=== PATIENT | female | born 1965 | race Caucasian/White ===

== ENCOUNTER 2023-10-09 05:45 | Day surgery (SDC) | payer OTHER ==
[2023-09-29 16:06] LABS: BILIRUBIN,URINE NEGATIVE (Neg); CLARITY,URINE CLEAR (Clear); COLOR,URINE YELLOW (Yellow); GLUCOSE, URINE NEGATIVE (Neg); KETONES,URINE NEGATIVE (Neg); LEUKOCYTE ESTERASE ,URINE NEGATIVE (Neg); NITRITES, URINE NEGATIVE (Neg); OCCULT BLOOD,URINE NEGATIVE (Neg); PH,URINE 6.5 (4.8-8.0); PROTEIN,URINE NEGATIVE (Neg); UROBILINOGEN,URINE 0.2 E.U/dL (0.2-1.0)
[2023-09-29 16:07] LABS: BASOPHILS # (AUTO) 0.1 X10'3 (0-0.2); BASOPHILS % (AUTO) 1.2 % (0-1); EOSINOPHILS # (AUTO) 0.1 X10'3 (0-0.9); EOSINOPHILS % (AUTO) 2.5 % (0-6); LYMPHOCYTES # (AUTO) 2.3 X10'3 (1.1-4.8); LYMPHOCYTES % (AUTO) 44.1 % (21-51); MEAN CORPUSCULAR HEMOGLOBIN 30.9 PG (27.0-31.0); MEAN CORPUSCULAR HGB CONC 33.6 g/dL (33.0-36.5); MEAN CORPUSCULAR VOLUME 91.9 FL (78-98); MEAN PLATELET VOLUME 8.2 FL (7.4-10.4); MONOCYTES # (AUTO) 0.4 X10'3 (0-0.9); MONOCYTES % (AUTO) 6.8 % (2-12); NEUTROPHILS # (AUTO) 2.4 X10'3 (1.8-7.7); NEUTROPHILS % (AUTO) 45.4 % (42-75); PRE OP HEMATOCRIT 41.8 % (35.0-45.0); PRE OP HEMOGLOBIN 14.1 g/dL (12.0-16.0); PRE OP PLATELET COUNT 208 X10'3 (140-440); PRE OP WHITE BLOOD COUNT 5.2 10'3 (4.8-10.8); RED BLOOD COUNT 4.55 X10'6 (4.20-5.60); RED CELL DISTRIBUTION WIDTH 13.4 % (11.5-14.5)
[2023-09-29 16:12] LABS: UA COLLECTION TYPE CLN CATCH MIDSTREAM
[2023-09-29 16:24] LABS: ALBUMIN 4.2 G/DL (3.4-5.0); ALBUMIN/GLOBULIN RATIO 1.2 (1.1-1.5); ALKALINE PHOSPHATASE 46 IU/L (46-116); BLOOD UREA NITROGEN 9 MG/DL (7-18); BUN/CREATININE RATIO 9.3 (10.0-20.0); CALCIUM 9.3 MG/DL (8.5-10.1); CHLORIDE 103 MMOL/L (99-107); CREATININE 0.97 MG/DL (0.40-0.90); PRE OP ALT 28 U/L (30-65); PRE OP ANION GAP 9 (8-16); PRE OP AST 25 U/L (10-37); PRE OP BILIRUB, TOTAL 0.4 MG/DL (0.0-1.0); PRE OP GLUCOSE 77 MG/DL (70-104); PRE OP SODIUM 140 MMOL/L (135-145); TOTAL CARBON DIOXIDE 28.5 MMOL/L (24-32); TOTAL PROTEIN 7.6 G/DL (6.4-8.2); eGFR 60 ML/MIN
[2023-09-29 16:27] LABS: PRE OP POTASSIUM 3.1 MMOL/L (3.4-5.1)
[2023-10-09] VITALS (10 sets, daily range): BP systolic 98–129; BP diastolic 63–80; PULSE 62–92; RESP 10–16; TEMP 97.6; O2SAT 95–100
[~2023-10-09] VITALS: Ht 167.6 cm; Wt 69.9 kg
[~2023-10-09 05:45] MED LIST: ASPI81TA52 PO; CEPH-585 PO; DOCU-148 PO; ERGO500093 PO; MAGN500C4 PO; ROSU5TAB12 PO; VITA-268 PO; cefazolin 2gm/D5W 100mL 100 ML IV ONE; famotidine 20mg tablet PO ONE; ringers solution, lacted 1,000 ML IV SCH
[2023-10-09 06:42] LABS: BILIRUBIN,URINE NEGATIVE (Neg); CLARITY,URINE CLEAR (Clear); COLOR,URINE YELLOW (Yellow); GLUCOSE, URINE NEGATIVE (Neg); KETONES,URINE NEGATIVE (Neg); LEUKOCYTE ESTERASE ,URINE NEGATIVE (Neg); NITRITES, URINE NEGATIVE (Neg); OCCULT BLOOD,URINE NEGATIVE (Neg); PROTEIN,URINE NEGATIVE (Neg); UROBILINOGEN,URINE 0.2 E.U/dL (0.2-1.0)
[2023-10-09 06:43] LABS: UA COLLECTION TYPE NON-SPECIFIED
[2023-10-09 06:47] LABS: ISTAT CREATININE 0.9 mg/dL (0.6-1.1); ISTAT HGB 13.6 g/dl (12.0-16.0); ISTAT IONIZED CALCIUM 1.16 mmol/L (1.03-1.32); ISTAT K 3.3 mmol/L (3.5-5.1); POC BUN/CREATININE RATIO 12.2 (6.6-38.0)
[2023-10-09] MEDS ORDERED: bacitracin 15gm ointment TP ONE (07:11)
[2023-10-09] MEDS ORDERED: BUPIVAcaine/PF 2.5mg/ml (0.25%) 10ml vial ONE (07:11)
[2023-10-09] MEDS ORDERED: sevoflurane 250ml liquid IH ONE (07:20)
[2023-10-09] MEDS ORDERED: dexamethasone sod phosphate 10mg/ml inj ONE (07:20)
[2023-10-09] MEDS ORDERED: fentaNYL/PF 50MCG/1 ML 2ML syringe ONE (07:29)
[2023-10-09] MEDS ORDERED: midazolam 1 mg/ML 2ml injection ONE (07:29)
[2023-10-09] MEDS ORDERED: propofol inj 20 ML IV ONE (07:37)
[2023-10-09] MEDS ORDERED: LIDOcaine 2% (20mg/ml) 5ml vial ONE (07:37)
[2023-10-09] MEDS ORDERED: ringers solution, lacted 1,000 ML IV SCH (08:40)
[2023-10-09] MEDS ORDERED: meperidine/PF 25mg/ml syringe IV PRN ×2 (08:40)
[2023-10-09] MEDS ORDERED: ondansetron/PF 4mg/2ml inj IV PRN (08:40)
[2023-10-09] MEDS ORDERED: morphine 4 MG/ML inj SYRINge IV PRN (08:40)
[2023-10-09] MEDS ORDERED: proCHLORperazine 10 MG/2 ml inj IV PRN (08:40)
[2023-10-09] MEDS ORDERED: enalaprilat dihydrate 2.5mg/2ml vial IV PRN (08:40)
[2023-10-09] MEDS ORDERED: labetalol 20mg/4ml (5mg/ml) syringe IV PRN (08:40)
[2023-10-09] MEDS ORDERED: morphine 2 MG/ML inj. syringe IV PRN (08:40)
[2023-10-09] MEDS ORDERED: ondansetron/PF 4mg/2ml inj ONE (09:02)
[2023-10-09] MEDS ORDERED: acetaminophen 1,000mg/100ml IV 100 ML IV ONE (09:02)
--- NOTE | 2023-10-09 09:13 | NUR ---
Received from OR via [facility], accompanied by Anesthesiologist DR. WELDON and report given by Anesthesiolgist AND OR NURSE. PT ARRIVED DROWSY ON 10L OF . VSS. PT COMPLAINS 09/01 PAIN. WILL MEDICATE PER EMAR. PT HAS 20G IV TO RIGHT AC RUNNING LR. L FOOT DRESSED IN STRUCTURED CAST AND WRAPPED IN KASSIDY BANDAGE. CAP REFILL WNL. POPLITEAL PULSE WNL. WILL CONTINUE TO MONITOR. Addendum: 10/09/23 at 0932 by Jenn Menezes RN Amended: Links added.
[2023-10-09] MEDS: meperidine/PF 25mg/ml syringe IV PRN ×2 (09:18→09:33)
[2023-10-09] MEDS ORDERED: HYDROcodone/acetaminophen 10/325mg tab PO ONE (10:00)
--- NOTE | 2023-10-09 10:23 | NUR ---
Patient stable for discharge per MD orders. All discharge paperwork was reviewed with patient and all questions, comments, and concerns were answered at this time. Education provided on non-weight bearing to LLE and continuing to ice and elevate. Ice pack was given to patient DRESSING CDI NO SIGNS OF SWELLING OR BLEEDING. IV D/C'D. Patient was able to safely transfer from [facility] to wheelchair with minimal assistance. No complaints of nausea and pain is tolerable per patient. Patient was transferred out to private vehicle to family with all personal belongings without incident.
== END 2023-10-09 10:23 | disposition home or self-care (01) ==
LOC: PAS 05:45
PROVIDERS: ATTEND Podiatrist Foot & Ankle Surgery
DX: M19.072 Primary osteoarthritis, left ankle and foot (principal); M20.22 Hallux rigidus, left foot; M72.2 Plantar fascial fibromatosis; G57.82 Other specified mononeuropathies of left lower limb; M77.32 Calcaneal spur, left foot; G43.909 Migraine, unspecified, not intractable, without status migrainosus; Z87.891 Personal history of nicotine dependence; Z98.890 Other specified postprocedural states; Z79.899 Other long term (current) drug therapy
CPT/HCPCS: 20900; 28060; 28080; 28119; 28740; 28750; 36415; 73620; 80047; 80053; 81003; 82948; 85025; A6223; C1713; J0131; J0690; J1100; J2175; J2250; J2270; J2405; J2704; J3010; J3490; J7030; J7120; Z7506; Z7508; Z7512; 76000; A4215; A4618; A6449; A7000